=== PATIENT | female | born 1995 | race African-American/Black ===

== ENCOUNTER 2022-10-14 14:43 | Emergency (ER) | payer OTHER, SELFPAY ==
[2022-10-14 14:58] VITALS: BP 136/75; PULSE 87; RESP 16; TEMP 36.6; O2SAT 99
--- NOTE | 2022-10-14 15:01 | ED.EAR ---
HPI - Ear Problem General Chief complaint: Ear Stated complaint: Fluid in ears Time Seen by Provider: 10/14/22 15:01 Source: patient Mode of arrival: ambulatory Limitations: no limitations History of Present Illness HPI Narrative: 27-year-old female presents with bilateral ear pain for the past 2-3 days. Patient reports that she has had recurrent ear infections for the past 6 months. Has seen any ENT specialist and has been told to take a daily antihistamine and Flonase. Has asked for ear tubes but states that nose will give him to her because she has an adult. Patient reports that she has appointment with a new ENT next week in [place]. Afebrile. All systems reviewed and negative except as noted above. Related Data Home Medications Medication Instructions Recorded Confirmed Iud 10/14/22 Allergies Allergy/AdvReac Type Severity Reaction Status Date / Time No Known Allergies Allergy Unverified 10/14/22 14:48 Review of Systems Review of Systems: CONSTITUTIONAL: Denies fever, chills, or sweats. EYES: Denies visual changes, redness, or discharge. ENT: Denies rhinorrhea, congestion, sore throat . Reports bilateral ear pain. CARDIOVASCULAR: Denies chest pain, palpitations, or edema. RESPIRATORY: Denies cough or dyspnea. GASTROINTESTINAL: Denies abdominal pain, nausea, vomiting, or diarrhea. GENITOURINARY: Denies dysuria or hematuria. SKIN: Denies rash or itching. MUSCULOSKELETAL: Denies back pain, joint pain, or myalgia. NEUROLOGIC: Denies headache, numbness, or weakness. PSYCHIATRIC: Denies anxiety or depression. All other systems reviewed are negative, except as documented in HPI. PMFSH Comments At time of signature, agree with nursing past medical, surgical, social and family history. There is no relevant family history pertinent to the presenting complaint. Exam Narrative: GENERAL: This is a well-nourished, well-developed patient, in no apparent distress. HEAD: normocephalic, atraumatic. EYES: PERRL. Sclera clear/white. Vision is grossly intact. EARS: External ears normal, auditory canals clear and without drainage, Yellow purulent fluid to bilateral TMs with erythema, bulging. No perforation bilaterally. NOSE: External nose normal with no obvious nasal discharge, nares without redness, no rhinorrhea. THROAT: Mucous membranes moist, posterior pharynx clear. NECK: Neck supple, non-tender without lymphadenopathy, masses or thyromegaly. CARDIOVASCULAR: Regular rate and rhythm without murmurs, gallops, or rubs. RESPIRATORY: Clear to auscultation. Breath sounds equal bilaterally. No wheezes, rales, or rhonchi. SKIN: warm, Dry, intact with no suspicious lesions or rash, good texture and turgor. NEURO: awake, alert, and oriented to person, place and time. There were no obvious focal neurologic abnormalities. EXTREMITIES: No joint tenderness, effusion, or edema noted. Course Course Level of Care: Express Care Visit Vital Signs Vital signs: Vital Signs Temperature 36.6 C 10/14/22 14:58 Pulse Rate 87 10/14/22 14:58 Respiratory Rate 16 10/14/22 14:58 Blood Pressure 136/75 10/14/22 14:58 Pulse Oximetry 99 10/14/22 14:58 Oxygen Delivery Room Air 10/14/22 14:58 Temperature 36.6 C 10/14/22 15:02 Pulse Rate 87 10/14/22 15:02 Respiratory Rate 16 10/14/22 15:02 Blood Pressure 136/75 10/14/22 15:02 Pulse Oximetry 99 10/14/22 15:02 Oxygen Delivery Room Air 10/14/22 15:02 reviewed Medical Decision Making MDM Narrative Medical decision making narrative: Patient is aware of diagnosis, understands and agrees to treatment plan. Anticipatory guidance given. Patient agrees to follow-up as directed and is aware of reasons to seek care at the emergency department. Portions of this record may have been created with voice recognition software Vital Signs Vital Signs: Vital Signs Temperature 36.6 C 10/14/22 14:58 Pulse Rate 87 10/14/22
[2022-10-14 15:02] VITALS: BP 136/75; PULSE 87; RESP 16; TEMP 36.6; O2SAT 99
== END 2022-10-14 15:07 | disposition home or self-care (01) ==
PROVIDERS: Emergency Provider Nurse Practitioner Family
DX: H65.06 Acute serous otitis media, recurrent, bilateral (principal)
CPT/HCPCS: 99213; G0463